=== PATIENT | female | born 2000 | race Caucasian/White ===

== ENCOUNTER 2021-10-29 17:52 | Emergency (ER) | payer BC, SELFPAY ==
--- NOTE | 2021-10-29 17:58 | ED.WOUNDLAC ---
HPI - Wound/Laceration General Chief Complaint: Wound/Laceration Stated Complaint: FINGER LACERATION Time Seen by Provider: 10/29/21 17:58 Source: patient and RN notes reviewed History of Present Illness HPI narrative: Patient is a 21-year-old female who presents the urgent care with complaints of a laceration to the left ring finger. Patient states that she was cutting an avocado just prior to arrival and stabbed the left ring finger. Patient is applied pressure gauze. No other acute complaints or injuries. No acute distress noted. Patient aware of the plan of care. Related Data Allergies Allergy/AdvReac Type Severity Reaction Status Date / Time No Known Allergies Allergy Verified 10/29/21 18:12 Review of Systems Review of Systems: CONSTITUTIONAL: Denies fever, chills, or sweats. EYES: Denies visual changes, redness, or discharge. ENT: Denies rhinorrhea, congestion, sore throat, or otalgia. CARDIOVASCULAR: Denies chest pain, palpitations, or edema. RESPIRATORY: Denies cough or dyspnea. GASTROINTESTINAL: Denies abdominal pain, nausea, vomiting, or diarrhea. GENITOURINARY: Denies dysuria or hematuria. SKIN: Reports of a left ring finger laceration MUSCULOSKELETAL: Denies back pain, joint pain, or myalgia. NEUROLOGIC: Denies headache, numbness, or weakness. All other systems reviewed are negative, except as documented in HPI. PMFSH Comments At the time of my signature, I reviewed and agree with the nursing past medical, surgical, social, and family history. There is no relevant family history pertinent to the patient complaint. Exam Narrative: GENERAL: This is a well-nourished, well-developed patient, in no apparent distress. HEAD: normocephalic, atraumatic. EYES: PERRL. Sclera clear/white. Vision is grossly intact. EARS: External ears normal NOSE: External nose normal with no obvious nasal discharge, nares without redness, no rhinorrhea. THROAT: Mucous membranes moist NECK: Neck supple SKIN: 2 cm linear your 0.25 cm gaping laceration to the proximal palmar aspect of the left ring finger. Warm, intact with no suspicious lesions or rash, good texture and turgor. NEURO: awake, alert, and oriented to person, place and time. There were no obvious focal neurologic abnormalities. EXTREMITIES: Positive strong left radial pulse with capillary refill less than 2 seconds. Range of motion to left upper extremity within normal limits. Course Course Level of Care: Express Care Visit Vital Signs Vital signs: Vital Signs Temperature 97.9 F 10/29/21 18:05 Pulse Rate 75 10/29/21 18:05 Respiratory Rate 18 10/29/21 18:05 Blood Pressure 119/42 L 10/29/21 18:05 Pulse Oximetry 100 10/29/21 18:05 Temperature 97.9 F 10/29/21 18:05 Pulse Rate 75 10/29/21 18:05 Respiratory Rate 18 10/29/21 18:05 Blood Pressure 119/42 L 10/29/21 18:05 Pulse Oximetry 100 10/29/21 18:05 Reviewed Procedures Laceration Laceration 1: Site: hand (Left ring finger) Side (If applicable): left Size (cm): 2 Description: linear Local Anesthetic: lidocaine 1% Amount of anesthesia used (mL): 1.5 Pre-repair: irrigated extensively (Technicare normal saline) ====== Skin Level ====== Skin layer closed with: steri strips and other (Ethilon) Size (cm): 5-0 Number of sutures: 3 ====== Subcutaneous Layer ====== ====== Muscle Layer ====== ====== Tendon Layer ====== Dressing: Wound cleansed/irrigated with Technicare normal saline. 1.5 mils of lidocaine for anesthetic. Placed 3 sutures across a 2 cm linear laceration to the proximal palmar aspect of the left ring finger. Patient tolerated well. No complications. MDM - Wound/Laceration MDM Narrative Medical decision making narrative: Advised the patient not to remove the Steri-Strips. Allow them to fall off on their own. May reinforce new ones if necessary. May wear a Band-Aid over the wound if
[2021-10-29 18:05] VITALS: BP 119/42; PULSE 75; RESP 18; TEMP 36.6; O2SAT 100
== END 2021-10-29 18:40 | disposition home or self-care (01) ==
PROVIDERS: Emergency Provider Nurse Practitioner Family
DX: S61.215A Laceration without foreign body of left ring finger without damage to nail, initial encounter (principal); W26.0XXA Contact with knife, initial encounter
CPT/HCPCS: 12001; 99212; G0463